=== PATIENT | male | born 1940 | race Asian ===

== ENCOUNTER 2017-12-12 12:00 | Emergency (ER) | payer MEDICARE ==
[~2017-12-12] VITALS: Ht 167.6 cm; Wt 65.8 kg
[2017-12-12 12:00] VITALS: BP_SYST 158
--- NOTE | 2017-12-12 12:00 | NUR ---
Placed in room 06. Placed on software test technician, blood pressure machine and pulse oximeter. To gown for exam. Side rails up. Report given to WILIAM Law.
--- NOTE | 2017-12-12 12:00 | NUR ---
Note job in ED - 12/12/17 at 1231 by [email or web address] Placed in room 06. Placed on monitoring analyst, blood pressure machine and pulse oximeter. To gown for exam. Side rails up. Report given to WILIAM Moulton.
--- NOTE | 2017-12-12 12:05 | NUR ---
Pt brought by daughter, A&Ox4, pt c/o R flank pain 05/02 starting 30 min ago and causing dizziness,denies N/V, also c/o not felling well for the last couple days, "cough", respirations even and unlabored, cap refill <3, skin pink and warm.
[2017-12-12] MEDS ORDERED: NACL 0.9% 1,000 ML IV ONE (12:13)
--- NOTE | 2017-12-12 12:15 | NUR ---
ER Dr. Rocha at bedside examining patient.
[2017-12-12 12:39] LABS: EOSINOPHILS # (AUTO) 0.3 K/uL (0.0-0.4); EOSINOPHILS % (AUTO) 7.7 % (0.0-4.0); HEMATOCRIT 37.3 % (36-54); HEMOGLOBIN 11.9 g/dL (14.0-18.0); LYMPHOCYTES # (AUTO) 1.1 K/uL (1.0-5.5); LYMPHOCYTES % (AUTO) 23.9 % (20.5-51.5); MEAN CORPUSCULAR HEMOGLOBIN 27 pg (27-31); MEAN CORPUSCULAR HGB CONC 32 % (32-36); MEAN CORPUSCULAR VOLUME 84 fL (79.0-98.0); MONOCYTES # (AUTO) 0.5 K/uL (0.0-1.0); MONOCYTES % (AUTO) 11.8 % (1.7-9.3); NEUTROPHILS # (AUTO) 2.6 K/uL (1.8-7.7); NEUTROPHILS % (AUTO) 55.6 % (40.0-70.0); PLATELET COUNT (AUTO) 330 K/uL (130-430); RED BLOOD CELL COUNT(AUTO) 4.45 MIL/uL (4.2-6.2); RED CELL DISTRIBUTION WIDTH 14.1 % (9.0-15.0); WHITE BLOOD COUNT (AUTO) 4.5 K/uL (4.8-10.8)
[2017-12-12 12:50] LABS: ANION GAP 6 (5-15); CALCIUM 9.6 mg/dL (8.4-11.0); CHLORIDE 106 mmol/L (98-107); GLUCOSE 121 mg/dL (70-99); POTASSIUM 4.7 mmol/L (3.5-5.1); SODIUM SERUM 137 mmol/L (136-145); UREA NITROGEN, BLOOD 30 mg/dL (8-21)
[2017-12-12 12:54] LABS: INR 0.9 (0.80-1.20); PROTHROMBIN TIME 9.5 SECS (9.5-12.5)
[2017-12-12 12:59] LABS: ALANINE AMINOTRANSFERASE 57 U/L (12-78); ALBUMIN 3.3 g/dL (3.4-4.8); AMYLASE 121 U/L (0-100); ASPARTATE AMINOTRANSFERASE 28 U/L (10-37); LIPASE 500 U/L (73-393); TOTAL BILIRUBIN 0.5 mg/dL (0.0-1.0)
--- NOTE | 2017-12-12 13:20 | NUR ---
Pt taken to radiology via gurney in stable condition.
[2017-12-12 13:37] LABS: BILIRUBIN,URINE NEGATIVE (NEGATIVE); BLOOD, URINE NEGATIVE (NEGATIVE); CLARITY/URINE CLEAR (CLEAR); COLOR,URINE YELLOW (YELLOW); GLUCOSE,URINE NEGATIVE (NEGATIVE); KETONES,URINE NEGATIVE (NEGATIVE); LEUKOCYTE ESTERASE ,URINE NEGATIVE (NEGATIVE); NITRITE, URINE NEGATIVE (NEGATIVE); PH,URINE 5.5 (5.0-8.0); PROTEIN URINE TRACE (NEGATIVE); UROBILINOGEN,URINE 0.2 (0.2-1.0)
--- NOTE | 2017-12-12 13:53 | NUR ---
[place] in stable condition
--- NOTE | 2017-12-12 14:21 | NUR ---
Pt resting comfortably in bed. Pt reports feeling tenderness to R flank. Daughter at bedside. Will continue to monitor.
[2017-12-12] MEDS ORDERED: MORPHINE 4 MG/ML INJ. SYRINGE IVP ONE (14:45)
[2017-12-12 14:56] LABS: ALBUMIN 3.4 g/dL (3.4-4.8); BILIRUBIN,DIRECT 0.1 mg/dL (0.0-0.3); TOTAL BILIRUBIN 0.5 mg/dL (0.0-1.0)
[2017-12-12] MEDS ORDERED: MORPHINE SULFATE 10 MG/ML VIAL ONE (15:04)
--- NOTE | 2017-12-12 15:07 | NUR ---
Medication administered. Pt tolerated well. No adverse reactions noted.
--- NOTE | 2017-12-12 16:10 | NUR ---
Pt resting comfortably in bed with no signs of distress
--- NOTE | 2017-12-12 17:12 | NUR ---
Pt resting comfortably in bed with no signs of distress. Pt advised of transfer to [facility], signed Patient Consent form. Pt's daughter called and informed of transfer ETA 1745. Will continue to monitor.
--- NOTE | 2017-12-12 17:47 | NUR ---
Patient to be transferred to [facility]. Is being transferred due to higher level of care. Receiving facility has accepting physician and available space. ER physician has signed transfer form. Patient or responsible constitution party has agreed to transfer and signed form. Patient belongings inventoried and will be sent with patient. Copy of nursing notes, lab reports, EKG, Physicians Orders and X-rays to be sent with patient. Report called to Monie SWAIN at receiving facility. Receiving physician is Dr. Lau. [facility] service has been called for transfer. ETA is 1745.
[2017-12-12 17:53] VITALS: BP_SYST 152
== END 2017-12-12 17:53 | disposition short-term general hospital (02) ==
LOC: SED 12:00
DX: K80.50 Calculus of bile duct without cholangitis or cholecystitis without obstruction (principal); N28.9 Disorder of kidney and ureter, unspecified; K85.90 Acute pancreatitis without necrosis or infection, unspecified; R55 Syncope and collapse; E11.9 Type 2 diabetes mellitus without complications; I10 Essential (primary) hypertension; Z85.46 Personal history of malignant neoplasm of prostate
CPT/HCPCS: 36415; 71045; 74176; 80053; 80076; 81003; 82150; 82550; 83690; 84484; 85025; 85610; 85730; 93005; 96361; 96374; 99285; J2270; J7030